=== PATIENT | male | born 1955 | race Native Hawaiian/Other Pacific Islander ===

== ENCOUNTER 2016-03-25 14:53 | Outpatient (CLI) | payer BC ==
[~2016-03-25 14:53] MED LIST: ADIPEX-P37.5 M1 OR; ALTACE5 MG OR; ASA LOW DOSE81 MG PO; CARV12.5 PO; CLARITIN10 MG OR; HUMALOG KWI100 MG/ML SC; INSU100I2 SC; LEVO0.0218 PO; LIPITOR20 MG PO; METF500T PO; VICTOZA18 MG/3 ML SC; XYZAL5 MG OR
== END 2016-03-25 20:14 | disposition home or self-care (01) ==
LOC: MRI 14:53
DX: M51.16 Intervertebral disc disorders with radiculopathy, lumbar region (principal)

== ENCOUNTER 2016-08-21 17:28 | Outpatient (CLI) | payer BC | END 2016-08-21 19:21 | disposition home or self-care (01) | LOC: ED 17:28 | DX: R11.0 Nausea (principal) | CPT/HCPCS: 96374; 99284; J2550 ==

== ENCOUNTER 2016-08-22 11:01 | Outpatient (CLI) | payer BC | END 2016-08-22 12:15 | disposition home or self-care (01) | LOC: CT 11:01 | DX: R51 Headache (principal) ==

== ENCOUNTER 2017-08-28 08:17 | Outpatient (CLI) | payer BC ==
[2017-08-28 08:50] LABS: PLATELET COUNT 222 K/uL (142-355)
== END 2017-08-28 19:10 | disposition home or self-care (01) ==
LOC: LABW 08:17
PROVIDERS: Internal Medicine
DX: E11.9 Type 2 diabetes mellitus without complications (principal); Z12.5 Encounter for screening for malignant neoplasm of prostate
CPT/HCPCS: 36415; 80053; 80061; 81000; 82043; 82570; 83036; 84153; 84439; 84443; 85027

== ENCOUNTER 2017-10-28 07:51 | Outpatient (CLI) | payer BC | END 2017-10-28 22:09 | disposition home or self-care (01) | LOC: CT 07:51 | DX: R10.2 Pelvic and perineal pain (principal) | CPT/HCPCS: 36415; 82565; 84520; Q9963 ==